=== PATIENT | male | born 1965 | race Caucasian/White ===

== ENCOUNTER → 2017-09-07 10:54 | Outpatient (POV) | payer OTHER, SELFPAY | PROVIDERS: Family Provider Family Medicine; Visit Provider Nurse Practitioner Acute Care | DX: Z00.00 Encounter for general adult medical examination without abnormal findings (principal) ==

== ENCOUNTER → 2017-09-14 09:57 | Outpatient (CLI) | payer OTHER, SELFPAY ==
--- NOTE | 2017-09-14 10:07 | XR_ITS ---
XR foot RT min 3V Ordering Physician: Di Stock DPM Patient Age: 52 years: Male HISTORY: ITS.REASON: ABSCESS OF FOOT EXCLUDING TOES Swelling & fluctuance plantar medial aspect of hindfoot TECHNIQUE: 3 views right foot radiograph COMPARISON :No previous] studies FINDINGS Osseous structures appear intact no fracture evident. No erosive changes. Joint spaces are well-maintained bones well mineralized. The small vessel calcifications throughout foot suggesting diabetes.. No radiopaque foreign body is evident there may be some mild soft tissue swelling at the heel pad evident on the lateral view and about the hindfoot. IMPRESSION: ---- Osseous structures intact. No fracture. Satisfactory relationships. No radiopaque foreign body evident. Suggest suggestion of vague soft tissue swelling/edema heel pad region Small vessel calcifications throughout ankle and foot likely reflecting diabetes
--- NOTE | 2017-09-14 12:25 | MR_ITS ---
MR foot RT wo/w con MRI right foot pre and postcontrast Ordering Physician: Di Stock DPM Patient Age: 52 years: Male HISTORY: Fluctuance swelling redness at the plantar medial aspect of the hindfoot. TECHNIQUE: Multiplanar multisequence imaging precontrast. Following 20 mL ProHance coronal T1 fat suppression as well as axial T1 fat suppression imaging performed. COMPARISON :Right foot radiograph 09/14/2017 FINDINGS No discrete focal fluid collection to suggest abscess. We see no prominent areas of enhancement to suggest cellulitis. There is diffuse edematous changes which appears to thicken the superficial soft tissues in subcutaneous soft at the level of the ankle. This is most evident overlying the medial malleolus but there is some mild superficial subcutaneous edema overlying the lateral malleolus and posteriorly is well.. The calf or legs swollen as well if so you may want to consider duplex Doppler study The superficial edema continues over the medial ankle and but progressively diminishes over the neck 2-3 cm inferior to the medial malleolus. Only minor subcutaneous edema medially overlying heel pad The heel pad fat itself shows only minor diffuse subtle edema, perhaps slightly more evident along the medial aspect calcaneus. However again no focal fluid collection nor abscess is seen here. Postcontrast images show no prominent enhancement nor focal enhancing lesion. Only question of some very enhancement throughout heel pad fat tissues which which could reflect minor inflammation at most question possible minor cellulitis but overall unimpressive.. Findings were discussed with Dr. Stock . & given history that the slight fluctuant area of abnormality is towards the medial aspect of the heel pad. Again shows only slight edema in the heel pad fat itself... Edema Most pronounced at superficial soft tissues overlying the medial malleolus and continuing towards the medial plantar aspect of foot there is less evident edema within the heel pad itself of medial aspect. Is there evidence of edema at the ankle and calf clinically? Close inspection On coronal image 29 and 28 there is a subtle linear area leading to the medial margin of the calcaneus.. It has almost a tract-like appearance possibly from previous reported needle puncture? Unlikely in that it this is of significance.. More likely reflect some of the contour ligamentous structures leading towards the medial component of the plantar aponeurosis.. If this were a foreign body I would expect to see much more evident fluid and/or enhancement adjacent to it and we do not. . The bones appear intact. No joint effusion. The plain films from previous 09/14/2017 study show no radiopaque foreign body either. However there are diffuse faint vascular calcifications throughout the foot likely reflecting underlying diabetes. The appearance the remainder of the lower leg would be important to correlate. I would question if this appearance could be related diabetic dermopathy process, since since by MR it appears to to primarily involve the superficial and subcutaneous tissue. IMPRESSION: 1. No Focal Abscess Evident... Particular attention directed towards medial aspect of the heel pad as per Dr. Stock hx. Only perhaps very subtle diffuse edema seen throughout heel pad, very slightly more evident medially. Postcontrast images show only subtle/upper normal diffuse enhancement throughout heel pad fat slightly more evident medial heel pad..-. Would expect to see greater enhancement if significant inflammation, from significant cellulitis or developing abscess,- and we do not. 2. The main abnormal finding is diffuse prominent superficial soft tissue edema, & yielding thickening soft tissues (measur
== END ==
PROVIDERS: PCP Family Medicine; Visit Provider Podiatrist
DX: L02.619 Cutaneous abscess of unspecified foot (principal)
CPT/HCPCS: 73630; 73720; 87070; 87077; 87186; 87205; A9576

== ENCOUNTER → 2017-09-14 10:24 | Outpatient (CLI) | payer OTHER, SELFPAY | PROVIDERS: Visit Provider Podiatrist | DX: L02.91 Cutaneous abscess, unspecified (principal) ==

== ENCOUNTER → 2017-09-14 10:27 | Outpatient (CLI) | payer OTHER, SELFPAY ==
[2017-09-14 11:35] LABS: Basophils # 0.1 K/mm3 (0-0.2); Basophils % 0.5 % (0.1-2.0); Eosinophils # 0.4 K/mm3 (0.0-0.4); Eosinophils % 4.2 % (0.1-12.0); Hematocrit 42.9 % (42.0-52.0); Hemoglobin 14.3 g/dL (14.1-18.0); Lymphocytes # 1.9 K/mm3 (0.7-4.5); Lymphocytes % 20.4 K/mm3 (10-50); Mean Corpuscular HGB Conc 33.4 g/dL (31.8-35.4); Mean Corpuscular Hemoglobin 30.8 pg (27.0-31.2); Mean Corpuscular Volume 92.4 fl (80-94); Mean Platelet Volume 8.7 fl (7.4-10.4); Monocytes # 0.5 K/mm3 (0.1-1.0); Monocytes % 5.5 % (1.7-9.3); Neutrophils # 6.5 K/mm3 (1.8-7.8); Neutrophils % 69.3 % (37.0-80.0); Platelet Count 221 K/mm3 (142-424); Red Blood Count 4.64 M/mm3 (4.60-6.20); Red Cell Distribution Width 12.9 % (11.5-17.5); White Blood Count 9.4 K/mm3 (4.8-10.8)
[2017-09-14 11:58] LABS: Hemoglobin A1C 8.4 % (0.0-7.0)
[2017-09-14 12:56] LABS: Alanine Aminotransferase 27 U/L (12-78); Albumin Level 3.9 gm/dL (3.4-5.0); Albumin/Globulin Ratio 1.1 (1.1-1.8); Alkaline Phosphatase 68 U/L (46-116); Anion Gap 13.2 mEq/L (5-15); Aspartate Amino Transferase 22 U/L (15-37); Bilirubin,Total 0.8 mg/dL (0.2-1.0); Blood Urea Nitrogen 17 mg/dL (7-18); Calcium 9.7 mg/dL (8.5-10.1); Carbon Dioxide 30 mmol/L (21.0-32.0); Chloride 103 mmol/L (98-107); Creatinine,Serum 0.85 mg/dL (0.70-1.30); Estimated Glomerular Filt Rate 95 ml/min (>60); GFR (African American) 115 ML/MIN (>60); Globulin 3.6 gm/dl (1.3-3.2); Glucose 139 mg/dL (74-106); Potassium 4.2 mmoL/L (3.5-5.1); Sodium 142 mmol/L (136-145); Total Protein,Serum 7.5 gm/dL (6.4-8.2)
[2017-09-14 12:57] LABS: Erythrocyte Sedimentation Rate 56 mm/hr (0-15)
== END ==
PROVIDERS: PCP Family Medicine; Visit Provider Podiatrist
DX: M79.671 Pain in right foot (principal)
CPT/HCPCS: 36415; 80053; 83036; 85025; 85651; 86140

== ENCOUNTER → 2017-10-16 09:45 | Outpatient (POV) | payer OTHER, SELFPAY | PROVIDERS: Visit Provider Podiatrist | DX: Z00.00 Encounter for general adult medical examination without abnormal findings (principal) ==

== ENCOUNTER → 2017-10-19 11:16 | Outpatient (POV) | payer OTHER, SELFPAY | PROVIDERS: Visit Provider Nurse Practitioner Acute Care | DX: Z00.00 Encounter for general adult medical examination without abnormal findings (principal) ==

== ENCOUNTER 2017-10-26 07:03 | Day surgery (SDC) | payer OTHER, SELFPAY ==
[2017-10-20 12:44] VITALS: BMI 33.2
--- NOTE | 2017-10-20 13:04 | SUR.PREOP ---
called for cardiac clearance left message for dr marcelina martinez nurse-srini =[phone],when if able to stop brillinta
[2017-10-26] VITALS (7 sets, daily range): BP systolic 92–148; BP diastolic 56–90; PULSE 60–76; RESP 16–18; TEMP 36.1–36.4; O2SAT 93–98
[2017-10-26 07:34] LABS: POC Glucose,Bedside 184 mg/dL (70-110)
--- NOTE | 2017-10-26 07:38 | P.PN_ITS ---
[facility] Anesthesia Checklist - Patient Identification Patient Identification: Arm Band - Structural Data Admitted From: Home Planned Operative Procedure/s: colonoscopy Consent for Planned Operative Procedure(s) Verified: Yes Verified Documents: Surgical Consent, History and Physical - NPO Status Verified Time NPO: 00:00 - Additional verifications Anesthesia Reactions: No - Airway Assessment C-Spine Mobility Assessed: Yes (mp2) TMJ Mobility Assessed: Yes Dentition: Good Dentition - Neurological Assessment Level of Consciousness: Awake, Alert - Anesthesia Plan Anesthesia Risk discussed: Yes Anesthesia Plan: Verified ASA Class: III Anesthesia Type: MAC [facility] Anesthesia HX I have reviewed the patient's past medical history: Yes Medical History: Reports:: Coronary Artery Disease, Diabetes Mellitus Type 2 ( niddm), Gall Bladder Disease, Hyperlipidemia, Hypertension, Lung Disease (sleep apnea, does not use cpap), Peripheral Vascular Disease Denies:: Diabetes Mellitus Type 1, Internal Pacemaker, Seizures Laterality Cases: Right: Arthroscopy Knee, Arthroscopy Shoulder Other Surgeries: Yes: Appendectomy, Cardiac Catheterization, Coronary Stent, Hernia Repair. No: Pacemaker Amputation: No Fractures: Yes *Family Hx:: Kidney Disease
--- NOTE | 2017-10-26 08:36 | P.PCN_ITS ---
[facility] Procedure Note Procedure Note:: Colonoscopy Procedure Report: Colonoscopy with cold snare polypectomy Endoscopist: Buddy Fierro II, MD Referring physician: Manoj Thompson MD Date of Procedure: October 26, 2017 Equipment: Olympus 180 variable stiffness pediatric colonoscope Sedation: MAC sedation Indication: Mr. Colon is a 52-year-old gentleman who is here for initial screening colonoscopy. He has had a history of dyspepsia and chronic constipation. He still has some obstipation/incomplete evacuation with the fiber bowel regimen (MiraLAX plus Citrucel). He reports no abdominal pain which is certainly improved since his dyspeptic symptoms have improved. He reports no rectal bleeding or weight loss. He is adopted and does not know his family history. Procedure: Prior to the procedure, a history and physical exam was performed, and patient' s medications and allergies were reviewed. The risks, benefits and alternatives of the sedation and procedure were discussed with the patient. All questions were answered and informed consent was obtained. The patient was brought to the procedure room. Patient identification and proposed procedure were verified by the physician and the nurse. The patient was placed in a left lateral decubitus position and the scope was passed under direct vision. Throughout the procedure, the patient's blood pressure, pulse, and oxygen saturations were monitored continuously. The colonoscopy was accomplished without difficulty. The patient tolerated the procedure well. Findings: On digital rectal examination there was normal rectal tone. There were no external hemorrhoids. The colonoscope was introduced through the anal canal to the rectum and advanced to the cecum. The ileocecal valve and appendiceal orifice were identified. The scope was advanced a short distance into the ileum which appeared grossly normal. The scope was then withdrawn into the colon. There were 5 colon polyps identified in the ascending ?2, transverse ?2 and descending ?1. These ranged in size from 4-9 mm and were all removed via cold snare polypectomy. There were mildly scattered diverticuli throughout the descending and sigmoid colon (LEFT colon). The rectum itself was normal. Upon retroflexion within the rectum there were grade 1-2 internal hemorrhoids. Impression: 1. Colonic polyps ?5 2. Mild left-sided diverticulosis 3. Grade 1-2 internal hemorrhoids Plan: I will follow up the polyp pathology and recommend repeat colonoscopy again in 3 years based upon the polyp histology. I would encourage continuation of a fiber bowel regimen (MiraLAX plus Konsyl) on a long-term daily maintenance basis.
== END 2017-10-26 09:28 | disposition home or self-care (01) ==
LOC: OUTP 07:04
PROVIDERS: Family Provider Family Medicine; Visit Provider Internal Medicine Gastroenterology
PROC: 0DJD8ZZ Inspection of Lower Intestinal Tract, Via Natural or Artificial Opening Endoscopic (ICD-10-PCS; CPT 45378; principal; 2017-10-26 08:00)
DX: Z12.11 Encounter for screening for malignant neoplasm of colon (principal); K63.5 Polyp of colon; K57.30 Diverticulosis of large intestine without perforation or abscess without bleeding; K64.0 First degree hemorrhoids; K64.1 Second degree hemorrhoids
CPT/HCPCS: 45380; 82962

== ENCOUNTER → 2017-12-11 08:02 | Outpatient (CLI) | payer OTHER, SELFPAY ==
--- NOTE | 2017-12-11 08:09 | US_ITS ---
US abdomen limited COMPARISON: CT scan abdomen pelvis 07/17/2017 HISTORY: Evaluation for possible abdominal ventral hernia TECHNIQUE: March ultrasound over the area of interest FINDINGS: There is an area of abdominal wall thickening in the epigastrium near just above the umbilicus. Reviewed with previous CT scan of the abdomen and pelvis from June 2017 shows mild thinning suggesting early diastases recti. There is no definite loop of bowel extending to the area of abdominal wall thickening area IMPRESSION: Question possible very early diastases recti involving the area of interest versus a true ventral hernia and I somewhat favor the former.
== END ==
PROVIDERS: Family Provider Family Medicine; PCP Physician Assistant; Visit Provider Nurse Practitioner Family
DX: K43.9 Ventral hernia without obstruction or gangrene (principal)
CPT/HCPCS: 76705

== ENCOUNTER → 2017-12-21 09:11 | Outpatient (CLI) | payer OTHER, SELFPAY ==
[2017-12-21 09:54] LABS: Basophils % 0.4 % (0.1-2.0); Eosinophils # 0.4 K/mm3 (0.0-0.4); Eosinophils % 4.6 % (0.1-12.0); Hematocrit 46.1 % (42.0-52.0); Hemoglobin 15.4 g/dL (14.1-18.0); Lymphocytes # 1.7 K/mm3 (0.7-4.5); Lymphocytes % 20.5 K/mm3 (10-50); Mean Corpuscular HGB Conc 33.3 g/dL (31.8-35.4); Mean Corpuscular Hemoglobin 31.7 pg (27.0-31.2); Mean Corpuscular Volume 95.1 fl (80-94); Mean Platelet Volume 8.3 fl (7.4-10.4); Monocytes # 0.7 K/mm3 (0.1-1.0); Neutrophils # 5.5 K/mm3 (1.8-7.8); Neutrophils % 66.5 % (37.0-80.0); Platelet Count 216 K/mm3 (142-424); Red Blood Count 4.85 M/mm3 (4.60-6.20); Red Cell Distribution Width 13.3 % (11.5-17.5); White Blood Count 8.2 K/mm3 (4.8-10.8)
[2017-12-21 13:33] LABS: Alanine Aminotransferase 30 U/L (12-78); Albumin Level 4.3 gm/dL (3.4-5.0); Albumin/Globulin Ratio 1.2 (1.1-1.8); Alkaline Phosphatase 70 U/L (46-116); Anion Gap 8.8 mEq/L (5-15); Aspartate Amino Transferase 27 U/L (15-37); Bilirubin,Total 0.9 mg/dL (0.2-1.0); Blood Urea Nitrogen 23 mg/dL (7-18); Calcium 9.8 mg/dL (8.5-10.1); Carbon Dioxide 30 mmol/L (21.0-32.0); Chloride 103 mmol/L (98-107); Creatinine,Serum 1.01 mg/dL (0.70-1.30); Estimated Glomerular Filt Rate 78 ml/min (>60); GFR (African American) 95 ML/MIN (>60); Globulin 3.5 gm/dl (1.3-3.2); Glucose 178 mg/dL (74-106); Potassium 4.8 mmoL/L (3.5-5.1); Sodium 137 mmol/L (136-145); Total Protein,Serum 7.8 gm/dL (6.4-8.2)
== END ==
PROVIDERS: Visit Provider Surgery
DX: Z01.818 Encounter for other preprocedural examination (principal); K82.8 Other specified diseases of gallbladder
CPT/HCPCS: 36415; 80053; 85025

== ENCOUNTER 2018-02-19 13:14 | Inpatient (IN) ==
[2018-02-19 18:15] LABS: Basophils % 0.4 % (0.1-2.0); Eosinophils # 0.3 K/mm3 (0.0-0.4); Eosinophils % 2.8 % (0.1-12.0); Hematocrit 44.1 % (42.0-52.0); Hemoglobin 14.7 g/dL (14.1-18.0); Lymphocytes # 2.3 K/mm3 (0.7-4.5); Mean Corpuscular HGB Conc 33.4 g/dL (31.8-35.4); Mean Corpuscular Hemoglobin 30.5 pg (27.0-31.2); Mean Corpuscular Volume 91.2 fl (80-94); Mean Platelet Volume 8.2 fl (7.4-10.4); Monocytes # 0.6 K/mm3 (0.1-1.0); Monocytes % 6.7 % (1.7-9.3); Neutrophils # 6.3 K/mm3 (1.8-7.8); Neutrophils % 66.2 % (37.0-80.0); Platelet Count 242 K/mm3 (142-424); Red Blood Count 4.83 M/mm3 (4.60-6.20); Red Cell Distribution Width 13.4 % (11.5-17.5); White Blood Count 9.6 K/mm3 (4.8-10.8)
[2018-02-19 18:18] LABS: Anion Gap 14.9 mEq/L (5-15); Calcium 9.2 mg/dL (8.5-10.1); Potassium 3.9 mmoL/L (3.5-5.1)
[2018-02-20 06:59] LABS: Basophils # 0.1 K/mm3 (0-0.2); Basophils % 0.7 % (0.1-2.0); Eosinophils # 0.3 K/mm3 (0.0-0.4); Eosinophils % 3.6 % (0.1-12.0); Hematocrit 40.2 % (42.0-52.0); Hemoglobin 13.3 g/dL (14.1-18.0); Lymphocytes # 2.5 K/mm3 (0.7-4.5); Lymphocytes % 30.6 K/mm3 (10-50); Mean Corpuscular Hemoglobin 30.5 pg (27.0-31.2); Mean Corpuscular Volume 92.5 fl (80-94); Mean Platelet Volume 8.3 fl (7.4-10.4); Monocytes # 0.7 K/mm3 (0.1-1.0); Monocytes % 7.9 % (1.7-9.3); Neutrophils # 4.7 K/mm3 (1.8-7.8); Neutrophils % 57.3 % (37.0-80.0); Platelet Count 200 K/mm3 (142-424); Red Blood Count 4.35 M/mm3 (4.60-6.20); Red Cell Distribution Width 13.4 % (11.5-17.5); White Blood Count 8.2 K/mm3 (4.8-10.8)
--- NOTE | 2018-02-20 07:12 | Progress Note ---
Internal Medicine - PN: Subj *Date: 02/20/18 *Time: 07:09 Interval history: Patient reports no change in level of pain in his right leg. He is unsure if there is been any improvement in erythema. He arrived at the hospital around 5 PM yesterday evening and currently (7:09 AM) is receiving his second dose of vancomycin. He has not had any fevers overnight Exam Vital signs and Labs for Last 24 Hours: Temp Pulse Resp BP Pulse Ox 97.9 F 62 20 154/89 96 02/20/18 03:52 02/20/18 03:52 02/20/18 03:52 02/20/18 03:52 02/20/18 03:52 Laboratory Results - last 24 hr 02/19/18 18:00: WBC 9.6, RBC 4.83, Hgb 14.7, Hct 44.1, MCV 91.2, MCH 30.5, MCHC 33.4, RDW 13.4, Plt Count 242, MPV 8.2, Neut % (Auto) 66.2, Lymph % (Auto) 24.0 , [place] % (Auto) 6.7, Eos % (Auto) 2.8, Baso % (Auto) 0.4, Neut # (Auto) 6.3, Lymph # (Auto) 2.3, [place] # (Auto) 0.6, Eos # (Auto) 0.3, Baso # (Auto) 0.0 02/19/18 18:00: Sodium 140, Potassium 3.9, Chloride 105, Carbon Dioxide 24, Anion Gap 14.9, BUN 20 H, Creatinine 1.06, Estimated Creat Clear 116, Estimated GFR 74, Est GFR ( Amer) 89, Glucose 164 H, Calcium 9.2 02/19/18 20:16: POC Glucose 129 H 02/20/18 06:05: WBC 8.2, RBC 4.35 L, Hgb 13.3 L, Hct 40.2 L, MCV 92.5, MCH 30.5 , MCHC 33.0, RDW 13.4, Plt Count 200, MPV 8.3, Neut % (Auto) 57.3, Lymph % (Auto ) 30.6, [place] % (Auto) 7.9, Eos % (Auto) 3.6, Baso % (Auto) 0.7, Neut # (Auto) 4.7, Lymph # (Auto) 2.5, [place] # (Auto) 0.7, Eos # (Auto) 0.3, Baso # (Auto) 0.1 02/20/18 06:32: POC Glucose 161 H I & O for Last 24 hours: Intake & Output 02/17/18 02/18/18 02/19/18 02/20/18 11:59 11:59 11:59 11:59 Weight 216 lb 1 oz Narrative: He appears well. On the right leg there has not been any improvement in the area of erythema. Erythema is still surrounded by a larger area of tenderness. The wound is not actively draining. I believe there is some mild fluctuance in the central aspect of the wound. Assessment and Plan (1) Cellulitis of right leg without foot Current visit: Yes Status: Acute Category: Medical Code(s): L03.115 - Cellulitis of right lower limb (2) Diabetes mellitus Current visit: No Status: Chronic Qualifiers: Diabetes mellitus type: type 2 Diabetes mellitus terminal system operator insulin use: without skilled nursing use Diabetes mellitus complication status: with neurologic complications Category: Medical Code(s): E11.9 - Type 2 diabetes mellitus without complications - Assessment and plan all Dx Assessment and Plan for all problems:: 1. 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 Surgical consultation as I believe the small and may need debridement due to underlying abscess
--- NOTE | 2018-02-20 08:09 | Consult Report ---
*Admission Date: 02/19/18 *Chief complaint: LEG PAIN *History of present illness: Patient is a 52-year-old white male who states that over a week ago he had been putting up a metal building. Shortly thereafter he had a small red area on the right lower lateral leg. He initially thought this may be a bug bite. However the area progressed with increasing redness and tenderness. He had been seen in his primary care provider's office earlier and was placed on oral antibiotics. He followed up in the office yesterday with increasing redness and tenderness and was admitted for inpatient management and surgical consultation. Review of Systems - Constitutional Denies chills - Eyes Denies change in vision - ENT Denies abnormal hearing - *Cardiovascular Denies chest pain - *Gastrointestinal Denies abdominal pain - *Genitourinary Denies difficulty urinating - *Musculoskeletal Denies joint pain - *Neurologic Denies tingling [facility] History Medical History: Reports:: Coronary Artery Disease, Diabetes Mellitus Type 2, Gall Bladder Disease, Hyperlipidemia, Hypertension, Lung Disease, Peripheral Vascular Disease Denies:: Cancer (biopsy of lower lip precancer), Diabetes Mellitus Type 1, Internal Pacemaker, MRSA, Seizures Laterality Cases: Right: Arthroscopy Knee, Arthroscopy Shoulder Other Surgeries: Yes: Appendectomy, Cardiac Catheterization, Coronary Stent, Hernia Repair. No: Pacemaker Amputation: No Fractures: Yes - *Social History Educational Level: Completed High School Smoking Status: Current every day smoker Tobacco Type: cigarettes Alcohol Intake: current Alcohol Intake Frequency:: a few times a week Substance Use Type: denies use Occupational Status: unemployed Housing: house Household Members: spouse - Psychiatric History Expresses thoughts of harming self/others: None Suicide Plan Description: No Plan *Family Hx:: Kidney Disease Meds Home Medications Medication Instructions Recorded Confirmed Type aspirin 81 mg tablet,delayed 81 mg PO DAILY 09/09/17 02/19/18 History release atorvastatin 10 mg tablet 10 mg PO DAILY 09/09/17 02/19/18 History dicyclomine 10 mg capsule 20 mg PO QID 09/09/17 02/19/18 History empagliflozin 25 mg tablet 25 mg PO DAILY 09/09/17 02/19/18 History gabapentin 300 mg capsule 300 mg PO TID cap 09/09/17 02/19/18 History metformin 1,000 mg tablet 1,000 mg PO BID 09/09/17 02/19/18 History metoclopramide 10 mg tablet 10 mg PO DAILY 09/09/17 02/19/18 History pantoprazole 40 mg tablet,delayed 40 mg PO DAILY 09/09/17 02/19/18 History release ticagrelor 90 mg tablet 90 mg PO BID 09/09/17 02/19/18 History Linaclotide [Linzess] 145 mcg PO DAILY 02/19/18 02/19/18 History Sitagliptin Phosphate [Januvia 50 mg PO DAILY 02/19/18 02/19/18 History 50mg Tablet] Allergies Allergy/AdvReac Type Severity Reaction Status Date / Time No Known Allergies Allergy Verified 12/21/17 08:52 Exam Vital signs and Labs for Last 24 Hours: Temp Pulse Resp BP Pulse Ox 97.8 F 55 L 16 124/73 94 L 02/20/18 07:21 02/20/18 07:21 02/20/18 07:21 02/20/18 07:21 02/20/18 07:21 Laboratory Results - last 24 hr 02/19/18 18:00: WBC 9.6, RBC 4.83, Hgb 14.7, Hct 44.1, MCV 91.2, MCH 30.5, MCHC 33.4, RDW 13.4, Plt Count 242, MPV 8.2, Neut % (Auto) 66.2, Lymph % (Auto) 24.0 , [place] % (Auto) 6.7, Eos % (Auto) 2.8, Baso % (Auto) 0.4, Neut # (Auto) 6.3, Lymph # (Auto) 2.3, [place] # (Auto) 0.6, Eos # (Auto) 0.3, Baso # (Auto) 0.0 02/19/18 18:00: Sodium 140, Potassium 3.9, Chloride 105, Carbon Dioxide 24, Anion Gap 14.9, BUN 20 H, Creatinine 1.06, Estimated Creat Clear 116, Estimated GFR 74, Est GFR ( Amer) 89, Glucose 164 H, Calcium 9.2 02/19/18 20:16: POC Glucose 129 H 02/20/18 06:05: WBC 8.2, RBC 4.35 L, Hgb 13.3 L, Hct 40.2 L, MCV 92.5, MCH 30.5 , MCHC 33.0, RDW 13.4, Plt Count 200, MPV 8.3, Neut % (Auto) 57.3, Lymph % (Auto ) 30.6, [place] % (Auto) 7.9, Eos % (Auto) 3.6, Baso % (Auto) 0.7, Neut # (Auto) 4.7, Lymph # (Auto) 2.5, [place] # (Auto) 0.7, Eos # (Auto) 0.3, Baso # (Auto) 0.1 02/20/18 06:32: POC Glucose 161 H I & O for Last 24 hours: Intake & Output 02/17/18 02/18/18 02/19/18 02/20/18 11:59 11:59 11:59 11:59 Weight 216 lb 1 oz - Constitutional no acute distress - *Routine Respiratory Exam Present: CTA bilaterally - *Routine Cardiovascular Exam Present: RRR - *Routine Abdominal Exam Present: soft - *Routine Skin Exam Comments: On the right lower lateral extremity there is an area of erythema with central necrosis. This is rather tender. There is seems to be some bruising as well. Results - Labs 02/20/18 06:05 02/19/18 18:00 Laboratory Results - last 24 hr 02/19/18 18:00: WBC 9.6, RBC 4.83, Hgb 14.7, Hct 44.1, MCV 91.2, MCH 30.5, MCHC 33.4, RDW 13.4, Plt Count 242, MPV 8.2, Neut % (Auto) 66.2, Lymph % (Auto) 24.0 , [place] % (Auto) 6.7, Eos % (Auto) 2.8, Baso % (Auto) 0.4, Neut # (Auto) 6.3, Lymph # (Auto) 2.3, [place] # (Auto) 0.6, Eos # (Auto) 0.3, Baso # (Auto) 0.0 02/19/18 18:00: Sodium 140, Potassium 3.9, Chloride 105, Carbon Dioxide 24, Anion Gap 14.9, BUN 20 H, Creatinine 1.06, Estimated Creat Clear 116, Estimated GFR 74, Est GFR ( Amer) 89, Glucose 164 H, Calcium 9.2 02/19/18 20:16: POC Glucose 129 H 02/20/18 06:05: WBC 8.2, RBC 4.35 L, Hgb 13.3 L, Hct 40.2 L, MCV 92.5, MCH 30.5 , MCHC 33.0, RDW 13.4, Plt Count 200, MPV 8.3, Neut % (Auto) 57.3, Lymph % (Auto ) 30.6, [place] % (Auto) 7.9, Eos % (Auto) 3.6, Baso % (Auto) 0.7, Neut # (Auto) 4.7, Lymph # (Auto) 2.5, [place] # (Auto) 0.7, Eos # (Auto) 0.3, Baso # (Auto) 0.1 02/20/18 06:32: POC Glucose 161 H Assessment and Plan (1) Cellulitis of right leg without foot Current visit: Yes Status: Acute Category: Medical Code(s): L03.115 - Cellulitis of right lower limb (2) Diabetes mellitus Current visit: No Status: Chronic Qualifiers: Diabetes mellitus type: type 2 Diabetes mellitus group home insulin use: without terminal supervisor use Diabetes mellitus complication status: with neurologic complications Category: Medical Code(s): E11.9 - Type 2 diabetes mellitus without complications - Assessment and plan all Dx Assessment and Plan for all problems:: This is a rather unusual appearing lesion with soft tissue infection. This may be possibly a spider bite with some tissue necrosis and secondary infection. Plan will be for incision and drainage of the central area with debridement of skin and subcutaneous tissues and tissue sent for pathology and cultures obtained.
--- NOTE | 2018-02-20 08:51 | Pharmacy Consult Notes ---
[facility] Pharmacy VTE Monitoring - Patient Demographics Admission date: 02/19/18 Report Date: 02/20/18 Time: 08:51 Allergies/Adverse Reactions: Patient Allergies No Known Allergies Allergy (Verified 12/21/17 08:52) Height: 1.75 m Weight: 98.004 kg Patient Problems: Current Active Problems Cellulitis of right leg without foot (Acute) - VTE Risk Labs: VTE Related Lab Results Hgb 13.3 g/dL (14.1-18.0) L 02/20/18 06:05 Hct 40.2 % (42.0-52.0) L 02/20/18 06:05 Plt Count 200 K/mm3 (142-424) 02/20/18 06:05 BUN 20 mg/dL (7-18) H 02/19/18 18:00 Creatinine 1.06 mg/dL (0.70-1.30) 02/19/18 18:00 Estimated Creat Clear 116 mL/min (0-300) 02/19/18 18:00 Was VTE Risk Assessment Performed: Yes VTE Score: 2 VTE Risk Level: Very Low Risk - Prophylaxis VTE Prophylaxis Ordered?: Yes Types of VTE Prophylaxis: Pharmacological Pharmacologic Type: Enoxaparin
--- NOTE | 2018-02-20 09:48 | Operative Note ---
Date of procedure: 02/20/18 Pre-op Diagnosis:: Soft tissue infection of right lower extremity Post-op Diagnosis:: Same Procedure performed:: Incision and drainage of right lower extremity abscess with debridement of skin and subcutaneous tissues Surgeon:: Brown Acuna MD UNDERWRITING SALES REPRESENTATIVE:: Elder England Anesthesia: LMA Estimated blood loss (mL): 10 Clinical Note:: Patient is a 52-year-old diabetic male who for a bit over a week has had a refractory area of erythema and tenderness on the right lateral lower extremity. It has increased in size and he was admitted after being seen in his primary care provider's office yesterday afternoon and follow-up for intravenous antibiotics and surgical consultation for debridement. Operative findings:: He had evidence of carotic tissue with abscess. This was somewhat hemorrhagic. Operative note:: Consent was obtained patient was taken to the operating room. He was given a dose of preoperative intravenous antibiotics. General anesthesia was induced via LMA. Area was prepped and draped in the standard surgical fashion. Limited incision was made around necrotic eschar. This was unroofed and there was some purulent material which was cultured. Additional necrotic tissue was excised using electrocautery. There was undermining in the subcutaneous plane anterior to the tibial fascia most notable medially for approximately 4 cm. There was some exudate overlying fascia centrally and this was debrided easily. Overall size of the wound measured 3 x 2.5 cm. Wound depth is less than 1 cm. As stated above, there was undermining circumferentially but most notable in the medial portion of the wound for approximately 3-4 cm. Local anesthetic was infiltrated. Wound was irrigated. Wound was packed with moistened gauze and clean dry sterile dressing was applied. Condition: stable Disposition: PACU Specimens:: Cultures and debrided tissue Complications:: None immediately apparent
--- NOTE | 2018-02-20 09:50 | Pharmacy Consult Notes ---
- Pharmacy Consult Date: 02/20/18 Time: 09:49 Referring provider: DR. COVARRUBIAS Reason for Consult:: VANCOMYCIN DOSING Allergies and ADEs:: Allergies Allergy/AdvReac Type Severity Reaction Status Date / Time No Known Allergies Allergy Verified 12/21/17 08:52 Home Medications:: Home Medications Medication Instructions Recorded Confirmed Type aspirin 81 mg tablet,delayed 81 mg PO DAILY 09/09/17 02/19/18 History release atorvastatin 10 mg tablet 10 mg PO DAILY 09/09/17 02/19/18 History dicyclomine 10 mg capsule 20 mg PO QID 09/09/17 02/19/18 History empagliflozin 25 mg tablet 25 mg PO DAILY 09/09/17 02/19/18 History gabapentin 300 mg capsule 300 mg PO TID cap 09/09/17 02/19/18 History metformin 1,000 mg tablet 1,000 mg PO BID 09/09/17 02/19/18 History metoclopramide 10 mg tablet 10 mg PO DAILY 09/09/17 02/19/18 History pantoprazole 40 mg tablet,delayed 40 mg PO DAILY 09/09/17 02/19/18 History release ticagrelor 90 mg tablet 90 mg PO BID 09/09/17 02/19/18 History Linaclotide [Linzess] 145 mcg PO DAILY 02/19/18 02/19/18 History Sitagliptin Phosphate [Januvia 50 mg PO DAILY 02/19/18 02/19/18 History 50mg Tablet] Height: 1.75 m Weight: 98.004 kg Laboratory Results:: Laboratory Results - last 24 hr 02/19/18 18:00: WBC 9.6, RBC 4.83, Hgb 14.7, Hct 44.1, MCV 91.2, MCH 30.5, MCHC 33.4, RDW 13.4, Plt Count 242, MPV 8.2, Neut % (Auto) 66.2, Lymph % (Auto) 24.0 , [place] % (Auto) 6.7, Eos % (Auto) 2.8, Baso % (Auto) 0.4, Neut # (Auto) 6.3, Lymph # (Auto) 2.3, [place] # (Auto) 0.6, Eos # (Auto) 0.3, Baso # (Auto) 0.0 02/19/18 18:00: Sodium 140, Potassium 3.9, Chloride 105, Carbon Dioxide 24, Anion Gap 14.9, BUN 20 H, Creatinine 1.06, Estimated Creat Clear 116, Estimated GFR 74, Est GFR ( Amer) 89, Glucose 164 H, Calcium 9.2 02/19/18 20:16: POC Glucose 129 H 02/20/18 06:05: WBC 8.2, RBC 4.35 L, Hgb 13.3 L, Hct 40.2 L, MCV 92.5, MCH 30.5 , MCHC 33.0, RDW 13.4, Plt Count 200, MPV 8.3, Neut % (Auto) 57.3, Lymph % (Auto ) 30.6, [place] % (Auto) 7.9, Eos % (Auto) 3.6, Baso % (Auto) 0.7, Neut # (Auto) 4.7, Lymph # (Auto) 2.5, [place] # (Auto) 0.7, Eos # (Auto) 0.3, Baso # (Auto) 0.1 02/20/18 06:32: POC Glucose 161 H Medical History: Reports:: Coronary Artery Disease, Diabetes Mellitus Type 2, Gall Bladder Disease, Hyperlipidemia, Hypertension, Lung Disease, Peripheral Vascular Disease Denies:: Cancer (biopsy of lower lip precancer), Diabetes Mellitus Type 1, Internal Pacemaker, MRSA, Seizures Assessment and Plan (1) Cellulitis of right leg without foot Current visit: Yes Status: Acute Category: Medical Code(s): L03.115 - Cellulitis of right lower limb (2) Diabetes mellitus Current visit: No Status: Chronic Qualifiers: Diabetes mellitus type: type 2 Diabetes mellitus residence manager insulin use: without residence manager use Diabetes mellitus complication status: with neurologic complications Category: Medical Code(s): E11.9 - Type 2 diabetes mellitus without complications - Assessment and plan all Dx Assessment and Plan for all problems:: BASED ON PATIENT FACTORS, RECOMMEND VANCOMYCIN 2 GM IV ONCE, FOLLOWED BY VANCOMYCIN 1500 MG IV Q12H. WILL OBTAIN VANCOMYCIN TROUGH LEVEL TOMORROW PRIOR TO 4TH DOSE. PHARMACY WILL FOLLOW DAILY AND ADJUST APPROPRIATE.
--- NOTE | 2018-02-20 09:56 | Progress Note ---
[facility] Anesthesia Checklist - Structural Data Admitted From: Home Planned Operative Procedure/s: i/d rle Consent for Planned Operative Procedure(s) Verified: Yes - Airway Assessment C-Spine Mobility Assessed: Yes TMJ Mobility Assessed: Yes Dentition: Poor Dentition - Neurological Assessment Level of Consciousness: Awake, Alert, Appropriate - Anesthesia Plan Anesthesia Risk discussed: Yes Anesthesia Plan: Verified ASA Class: III Anesthesia Type: General [facility] Anesthesia HX I have reviewed the patient's past medical history: Yes Medical History: Reports:: Coronary Artery Disease, Diabetes Mellitus Type 2, Gall Bladder Disease, Hyperlipidemia, Hypertension, Lung Disease, Peripheral Vascular Disease Denies:: Cancer (biopsy of lower lip precancer), Diabetes Mellitus Type 1, Internal Pacemaker, MRSA, Seizures Laterality Cases: Right: Arthroscopy Knee, Arthroscopy Shoulder Other Surgeries: Yes: Appendectomy, Cardiac Catheterization, Coronary Stent, Hernia Repair. No: Pacemaker Amputation: No Fractures: Yes *Family Hx:: Kidney Disease
--- NOTE | 2018-02-20 09:57 | Progress Note ---
[facility] Anesthesia Record Part I Intake, IV Amount: 500 Estimated blood loss (mL): 0 Urine output (mL): 0 Blood Pressure: 109/65 SaO2: 98 Pulse Rate: 65 Respiratory Rate: 12 Temperature: 98.3 F Patient is:: Drowsy, Stable Stable to PACU at:: 09:50
--- NOTE | 2018-02-20 09:58 | Progress Note ---
[facility] Anesthesia Record Part II Discharge Time: 10:20 Destination: floor PACU nurse assessment reviewed?: Yes Patient Condition:: Good Anesthesia Complications:: None
[2018-02-21 06:28] LABS: Basophils % 0.1 % (0.1-2.0); Eosinophils % 0.2 % (0.1-12.0); Hematocrit 44.3 % (42.0-52.0); Hemoglobin 14.6 g/dL (14.1-18.0); Lymphocytes # 1.3 K/mm3 (0.7-4.5); Lymphocytes % 11.8 K/mm3 (10-50); Mean Corpuscular Hemoglobin 30.3 pg (27.0-31.2); Mean Corpuscular Volume 91.8 fl (80-94); Mean Platelet Volume 8.6 fl (7.4-10.4); Monocytes # 0.4 K/mm3 (0.1-1.0); Monocytes % 3.9 % (1.7-9.3); Neutrophils # 9.3 K/mm3 (1.8-7.8); Platelet Count 235 K/mm3 (142-424); Red Blood Count 4.82 M/mm3 (4.60-6.20); Red Cell Distribution Width 13.2 % (11.5-17.5)
--- NOTE | 2018-02-21 06:45 | Progress Note ---
Internal Medicine - PN: Subj *Date: 02/21/18 *Time: 06:42 Interval history: Patient complains of pain in the right leg this morning. He underwent debridement of the wound on his right leg yesterday morning. He denies fevers overnight. He has been able to ambulate. Exam Vital signs and Labs for Last 24 Hours: Temp Pulse Resp BP Pulse Ox 97.9 F 64 18 120/65 92 L 02/21/18 04:00 02/21/18 04:00 02/21/18 04:00 02/21/18 04:00 02/21/18 04:00 Laboratory Results - last 24 hr 02/20/18 06:05: WBC 8.2, RBC 4.35 L, Hgb 13.3 L, Hct 40.2 L, MCV 92.5, MCH 30.5 , MCHC 33.0, RDW 13.4, Plt Count 200, MPV 8.3, Neut % (Auto) 57.3, Lymph % (Auto ) 30.6, [place] % (Auto) 7.9, Eos % (Auto) 3.6, Baso % (Auto) 0.7, Neut # (Auto) 4.7, Lymph # (Auto) 2.5, [place] # (Auto) 0.7, Eos # (Auto) 0.3, Baso # (Auto) 0.1 02/20/18 06:32: POC Glucose 161 H 02/20/18 11:07: POC Glucose 119 H 02/20/18 16:14: POC Glucose 278 H 02/20/18 21:04: POC Glucose 256 H 02/21/18 06:04: WBC 11.0 H D, RBC 4.82, Hgb 14.6, Hct 44.3, MCV 91.8, MCH 30.3, MCHC 33.0, RDW 13.2, Plt Count 235, MPV 8.6, Neut % (Auto) 84.0 H, Lymph % (Auto ) 11.8, [place] % (Auto) 3.9, Eos % (Auto) 0.2, Baso % (Auto) 0.1, Neut # (Auto) 9.3 H, Lymph # (Auto) 1.3, [place] # (Auto) 0.4, Eos # (Auto) 0.0, Baso # (Auto) 0.0 02/21/18 06:17: POC Glucose 174 H I & O for Last 24 hours: Intake & Output 02/18/18 02/19/18 02/20/18 02/21/18 11:59 11:59 11:59 11:59 Intake Total 500 / 500 1260 / 1260 Balance 500 / 500 1260 / 1260 Weight 216 lb 1 oz Microbiology Reports for the Last 24 Hours: Microbiology 02/20/18 Unknown Leg,Right Gram Stain - Final 02/20/18 Unknown Leg,Right Abscess Culture - Preliminary Gram Positive Cocci Culture showing rare gram-positive cocci in clusters Narrative: Patient appears well. On examination of the wound the wound is packed with gauze and this packing was left in place. Erythema surrounding the wound has changed from bright red to a dull red. Skin superior to the wound is no longer tender. Skin both medially, laterally, inferiorly benzene still utility operator to the touch. Swelling has decreased in the wound. Assessment and Plan (1) Cellulitis of right leg without foot Current visit: Yes Status: Acute Category: Medical Code(s): L03.115 - Cellulitis of right lower limb (2) Diabetes mellitus Current visit: No Status: Chronic Qualifiers: Diabetes mellitus type: type 2 Diabetes mellitus usp insulin use: without usp use Diabetes mellitus complication status: with neurologic complications Category: Medical Code(s): E11.9 - Type 2 diabetes mellitus without complications (3) History of MRSA infection Current visit: Yes Status: Acute Category: Medical Code(s): Z86.14 - Personal history of Methicillin resistant Staphylococcus aureus infection - Assessment and plan all Dx Assessment and Plan for all problems:: 1. Begin dressing changes twice daily 2. Continue IV antibiotics for additional 24 hours and reassess wound 3. Anticipate discharge tomorrow
--- NOTE | 2018-02-21 10:10 | Progress Note ---
Subjective Narrative: Patient describes less diffuse pain. He has some pain medially to the wound regionally over the tibial area. Exam Vital signs and Labs for Last 24 Hours: Temp Pulse Resp BP Pulse Ox 97.6 F 76 18 149/81 91 L 02/21/18 07:56 02/21/18 07:56 02/21/18 07:56 02/21/18 07:56 02/21/18 07:56 Laboratory Results - last 24 hr 02/20/18 11:07: POC Glucose 119 H 02/20/18 16:14: POC Glucose 278 H 02/20/18 21:04: POC Glucose 256 H 02/21/18 06:04: WBC 11.0 H D, RBC 4.82, Hgb 14.6, Hct 44.3, MCV 91.8, MCH 30.3, MCHC 33.0, RDW 13.2, Plt Count 235, MPV 8.6, Neut % (Auto) 84.0 H, Lymph % (Auto ) 11.8, [place] % (Auto) 3.9, Eos % (Auto) 0.2, Baso % (Auto) 0.1, Neut # (Auto) 9.3 H, Lymph # (Auto) 1.3, [place] # (Auto) 0.4, Eos # (Auto) 0.0, Baso # (Auto) 0.0 02/21/18 06:04: Vancomycin Trough 14.9 02/21/18 06:17: POC Glucose 174 H I & O for Last 24 hours: Intake & Output 02/18/18 02/19/18 02/20/18 02/21/18 11:59 11:59 11:59 11:59 Intake Total 500 / 500 1620 / 1620 Balance 500 / 500 1620 / 1620 Weight 216 lb 1 oz Microbiology Reports for the Last 24 Hours: Microbiology 02/20/18 Unknown Leg,Right Gram Stain - Final 02/20/18 Unknown Leg,Right Abscess Culture - Preliminary Gram Positive Cocci - *Routine Extremities Exam Comments: Wound is clean. Erythema regressing. Progress Note: A&P (1) Cellulitis of right leg without foot Status: Acute Assessment and plan: Did dressing at bedside. Pain possibly from undermining with packing. Continue IV antibiotics and dressing changes. Possible discharge tomorrow on oral antibiotics and outpatient wound care. Current Visit: Yes (2) Diabetes mellitus Status: Chronic Current Visit: No (3) History of MRSA infection Status: Acute Current Visit: Yes
--- NOTE | 2018-02-21 10:23 | Pharmacy Consult Notes ---
- Pharmacy Consult Date: 02/21/18 Time: 10:22 Referring provider: DR. COVARRUBIAS Reason for Consult:: VANCOMYCIN TROUGH LEVEL Allergies and ADEs:: Allergies Allergy/AdvReac Type Severity Reaction Status Date / Time No Known Allergies Allergy Verified 12/21/17 08:52 Home Medications:: Home Medications Medication Instructions Recorded Confirmed Type aspirin 81 mg tablet,delayed 81 mg PO DAILY 09/09/17 02/19/18 History release atorvastatin 10 mg tablet 10 mg PO DAILY 09/09/17 02/19/18 History dicyclomine 10 mg capsule 20 mg PO QID 09/09/17 02/19/18 History empagliflozin 25 mg tablet 25 mg PO DAILY 09/09/17 02/19/18 History gabapentin 300 mg capsule 300 mg PO TID cap 09/09/17 02/19/18 History metformin 1,000 mg tablet 1,000 mg PO BID 09/09/17 02/19/18 History metoclopramide 10 mg tablet 10 mg PO DAILY 09/09/17 02/19/18 History pantoprazole 40 mg tablet,delayed 40 mg PO DAILY 09/09/17 02/19/18 History release ticagrelor 90 mg tablet 90 mg PO BID 09/09/17 02/19/18 History Linaclotide [Linzess] 145 mcg PO DAILY 02/19/18 02/19/18 History Sitagliptin Phosphate [Januvia 50 mg PO DAILY 02/19/18 02/19/18 History 50mg Tablet] Height: 1.75 m Weight: 98.004 kg Laboratory Results:: Laboratory Results - last 24 hr 02/20/18 11:07: POC Glucose 119 H 02/20/18 16:14: POC Glucose 278 H 02/20/18 21:04: POC Glucose 256 H 02/21/18 06:04: WBC 11.0 H D, RBC 4.82, Hgb 14.6, Hct 44.3, MCV 91.8, MCH 30.3, MCHC 33.0, RDW 13.2, Plt Count 235, MPV 8.6, Neut % (Auto) 84.0 H, Lymph % (Auto ) 11.8, [place] % (Auto) 3.9, Eos % (Auto) 0.2, Baso % (Auto) 0.1, Neut # (Auto) 9.3 H, Lymph # (Auto) 1.3, [place] # (Auto) 0.4, Eos # (Auto) 0.0, Baso # (Auto) 0.0 02/21/18 06:04: Vancomycin Trough 14.9 02/21/18 06:17: POC Glucose 174 H Medical History: Reports:: Coronary Artery Disease, Diabetes Mellitus Type 2, Gall Bladder Disease, Hyperlipidemia, Hypertension, Lung Disease, Peripheral Vascular Disease Denies:: Cancer (biopsy of lower lip precancer), Diabetes Mellitus Type 1, Internal Pacemaker, MRSA, Seizures Assessment and Plan (1) Cellulitis of right leg without foot Current visit: Yes Status: Acute Category: Medical Code(s): L03.115 - Cellulitis of right lower limb (2) Diabetes mellitus Current visit: No Status: Chronic Qualifiers: Diabetes mellitus type: type 2 Diabetes mellitus intermediate school teacher insulin use: without intermediate school teacher use Diabetes mellitus complication status: with neurologic complications Category: Medical Code(s): E11.9 - Type 2 diabetes mellitus without complications (3) History of MRSA infection Current visit: Yes Status: Acute Category: Medical Code(s): Z86.14 - Personal history of Methicillin resistant Staphylococcus aureus infection - Assessment and plan all Dx Assessment and Plan for all problems:: BASED ON PATIENT FACTORS AND VANCOMYCIN TROUGH LEVEL, RECOMMEND CONTINUING VANCOMYCIN 1500 MG IV Q12H. PHARMACY WILL CONTINUE TO MONITOR DAILY AND ADJUST APPROPRIATE.
--- NOTE | 2018-02-22 07:14 | Discharge Summary ---
General - General Admission date:: 02/19/18 Discharge date: 02/22/18 HPI HPI: Patient is a 52-year-old white male who states that over a week ago he had been putting up a metal building. Shortly thereafter he had a small red area on the right lower lateral leg. He initially thought this may be a bug bite. However the area progressed with increasing redness and tenderness. He had been seen in his primary care provider's office earlier and was placed on oral antibiotics. He followed up in the office yesterday with increasing redness and tenderness and was admitted for inpatient management and surgical consultation. Hospital Course Hospital Course: Patient was admitted on the evening of February 19 and IV vancomycin was started. The following morning patient had surgical consultation and decision was made to take the patient to the OR for debridement of his right leg wound. Patient underwent successful debridement by Dr. Acuna. He was maintained on IV vancomycin. Cultures were performed intraoperatively. Patient had gradual improvement of cellulitis surrounding the wound after surgery. Wound was packed and he will require dressing changes twice daily. On the morning of February 22 cellulitis had improved significantly. Patient was discharged home on Bactrim to cover his methicillin sensitive staph aureus infection.. He has been advised to stay off work for at least 2 weeks. Patient will follow-up with Dr. Acuna as directed and follow-up with me in 2 weeks. Objective Vital signs: Temp Pulse Resp BP Pulse Ox 98.0 F 67 16 102/62 93 L 02/22/18 04:00 02/22/18 04:00 02/22/18 04:00 02/22/18 04:00 02/22/18 04:00 Results Labs on day of discharge: Labs from last 24 hours 02/21/18 02/21/18 02/21/18 20:02 16:25 11:37 POC Glucose 254 H 219 H 276 H Preliminary micro results at discharge 02/19/18 18:06 Blood Culture - Preliminary Blood NO GROWTH AFTER 48 HOURS DS: Diagnosis - Discharge Diagnosis (1) Cellulitis of right leg without foot Status: Acute (2) Diabetes mellitus Status: Chronic (3) History of MRSA infection Status: Acute (4) MSSA (methicillin susceptible Staphylococcus aureus) Status: Acute Discharge Plan - Patient Discharge Instructions ACTIVITY: Continue current activity DIET: continue same diet - Follow up Plan Follow up with: Brown Acuna MD [Staff Physician] - Manoj Thompson MD [Primary Care Provider] - 03/08/18 1:30 pm Disposition: Home, Self-Correction Medications: Home Medications Medication Instructions Recorded Confirmed Type aspirin 81 mg tablet,delayed 81 mg PO DAILY 09/09/17 02/19/18 History release atorvastatin 10 mg tablet 10 mg PO DAILY 09/09/17 02/19/18 History dicyclomine 10 mg capsule 20 mg PO QID 09/09/17 02/19/18 History empagliflozin 25 mg tablet 25 mg PO DAILY 09/09/17 02/19/18 History gabapentin 300 mg capsule 300 mg PO TID cap 09/09/17 02/19/18 History metformin 1,000 mg tablet 1,000 mg PO BID 09/09/17 02/19/18 History metoclopramide 10 mg tablet 10 mg PO DAILY 09/09/17 02/19/18 History pantoprazole 40 mg tablet,delayed 40 mg PO DAILY 09/09/17 02/19/18 History release ticagrelor 90 mg tablet 90 mg PO BID 09/09/17 02/19/18 History Linaclotide [Linzess] 145 mcg PO DAILY 02/19/18 02/19/18 History RX: Sitagliptin Phosphate [Januvia 50 mg PO DAILY 02/19/18 02/19/18 History 50mg Tablet] Prescriptions/Medication Reconciliation: New Sulfamethoxazole/Trimethoprim [Bactrim DS tablet] 1 each PO BID #14 tab Continue atorvastatin 10 mg tablet 10 mg PO DAILY dicyclomine 10 mg capsule 20 mg PO QID ticagrelor 90 mg tablet 90 mg PO BID gabapentin 300 mg capsule 300 mg PO TID cap empagliflozin 25 mg tablet 25 mg PO DAILY metformin 1,000 mg tablet 1,000 mg PO BID metoclopramide 10 mg tablet 10 mg PO DAILY pantoprazole 40 mg tablet,delayed release 40 mg PO DAILY aspirin 81 mg tablet,delayed release 81 mg PO DAILY RX: Sitagliptin Phosphate [Januvia 50mg Tablet] 50 mg PO DAILY Linaclotide [Linzess] 145 mcg PO DAILY
--- NOTE | 2018-02-22 08:40 | Progress Note ---
Subjective Patient reports: feels better Exam Vital signs and Labs for Last 24 Hours: Temp Pulse Resp BP Pulse Ox 97.6 F 61 18 158/82 97 02/22/18 08:00 02/22/18 08:00 02/22/18 08:00 02/22/18 08:00 02/22/18 08:00 Laboratory Results - last 24 hr 02/21/18 11:37: POC Glucose 276 H 02/21/18 16:25: POC Glucose 219 H 02/21/18 20:02: POC Glucose 254 H I & O for Last 24 hours: Intake & Output 02/19/18 02/20/18 02/21/18 02/22/18 11:59 11:59 11:59 11:59 Intake Total 500 / 500 1620 / 1620 900 / 900 Balance 500 / 500 1620 / 1620 900 / 900 Weight 216 lb 1 oz 216 lb 1 oz 216 lb 0.989 oz Microbiology Reports for the Last 24 Hours: Microbiology 02/20/18 Unknown Leg,Right - Final 02/20/18 Unknown Leg,Right - Final 02/20/18 Unknown Leg,Right - Final 02/20/18 Unknown Leg,Right Gram Stain - Final 02/20/18 Unknown Leg,Right Abscess Culture - Final Staphylococcus aureus 02/19/18 18:06 Blood Blood Culture - Preliminary NO GROWTH AFTER 48 HOURS - *Routine Extremities Exam Comments: Wound is clean. Erythema has virtually completely resolved. Progress Note: A&P (1) Cellulitis of right leg without foot Status: Acute Current Visit: Yes (2) Diabetes mellitus Status: Chronic Current Visit: No (3) History of MRSA infection Status: Acute Assessment and plan: Okay for discharge home at this time. Patient and are comfortable performing dressing changes at home. Plan for twice daily dressing changes, wet -to-dry, with saline. Anticipate off work for 2 weeks. I will see him in the office in 1 week for wound check. Current Visit: Yes (4) MSSA (methicillin susceptible Staphylococcus aureus) Status: Acute Current Visit: Yes
== END 2018-02-22 10:14 | disposition home or self-care (01) ==
LOC: 2ND 13:14
PROVIDERS: ADMIT Family Medicine; ATTEND Family Medicine

== ENCOUNTER 2018-04-21 10:00 | Outpatient (RCR) | payer OTHER, SELFPAY ==
--- NOTE | 2018-03-03 16:19 | [facility].PTOPWND ---
Rehab Outpt Wound Evaluation Rehab OP Wound Evaluation Start: 03/03/18 16:09 Freq: Status: Active Protocol: Document 03/03/18 16:09 PARAGCARRIE (Rec: 03/03/18 16:18 LISANDRA [id number]) Electronically Signed By Ludin Goddard PT 03/03/18 16:09 Subjective/History History History This is the initial OP PT wound clinic eval for Dionicio Colon. Pt is a 52 y/o male referred to PT for wound care. Pt reports ~ 1 month ago he noticed a scab on his R sorensen . Pt rpeorts after a few days the redness around the scab began to spread and hurt. Pt reports he went to family MD, wound cultured and pt admitted to hospital. Pt reports surgical debridement done in hospital and antibiotics. Pt reports staph. Subjective Subjective Pt reports TTP around wound Wound Eval Wound Right Anterior Lateral Sorensen Wound Type debrided spider bite Is This a Chronic Wound Yes Wound Length (cm) 3.5 Wound Width (cm) 3.0 Wound Depth (cm) 0.5 Wound Bed Appearance Dusky Red Yellow Percentage of Slough (%) 100 Wound Margins Description Well Defined Surrounding Tissue Appearance [place] Drainage Description Serous Drainage Amount Scant Drainage Odor No Odor Dressing Status Changed Wound Topical Solution/Irrigant Antibiotic Irrigant Primary Dressing Silver Dressing Comment tegederm AG mesh Wound Secondary Dressing Type Film Dressing Wound Debridement Amount of Tissue None Removed Dressing Change Patient Tolerance Tolerated Well Wound Problems/Impairments Impairments Problems/Impairmments Palpation Tenderness Impaired Gait Pattern Impaired Walking Impaired Stair Climbing Impaired Recreational Activities Impaired Work Activities Wound Care Needs Subjective C/O Pain Impaired Self Care/Self Management Prognosis Rehab Potential Good Clinical Impression Consistent with Diagnosis Yes
== END 2018-04-21 10:01 | disposition home or self-care (01) ==
LOC: PT 10:00
PROVIDERS: Family Provider Family Medicine; PCP Family Medicine; Visit Provider Surgery
DX: T63.304A Toxic effect of unspecified spider venom, undetermined, initial encounter (principal); M79.662 Pain in left lower leg
CPT/HCPCS: 97161; 97597

== ENCOUNTER → 2019-03-15 14:06 | Outpatient (CLI) | payer OTHER, SELFPAY ==
--- NOTE | 2019-03-15 14:14 | XR_ITS ---
XR foot LT min 3V HISTORY: ITS.REASON: LT FOOT PAIN ORDERING PHYSICIAN: Manoj Thompson MD PATIENT AGE: 54 years COMPARISON: None FINDINGS: Bone density, joint spaces and alignment are normal. There is a prominent 10 mm plantar calcaneal spur. There is a small spur at the superior talonavicular joint and at the superior first tarsal/metatarsal joint. There is no acute fracture. There are vascular calcifications. Impression: Degenerative changes as described. No acute process. No significant change in the plantar arch on the weightbearing lateral view.
== END ==
PROVIDERS: PCP Family Medicine; Visit Provider Family Medicine
DX: M79.672 Pain in left foot (principal)
CPT/HCPCS: 73630

== ENCOUNTER → 2019-06-21 12:28 | Outpatient (CLI) | payer SELFPAY ==
--- NOTE | 2019-06-21 12:35 | XR_ITS ---
PROCEDURE: XR FOOT WT BEARING LT 3V CLINICAL INDICATION: evaluate for osteomyelitis of the left great toe Pain and swelling with redness COMPARISON: [id number] XR foot RT min 3V from 09/14/2017 XR FOOT LT MIN 3V from 06/04/2019 FINDINGS: No fracture or dislocation. No lytic or blastic change. There is normal mineralization. Soft tissue swelling involves the great toe. There is some questionable discontinuity of the cortex along the distal and lateral aspect of the distal phalanx. Cannot exclude early osteomyelitis. There is some vascular calcification. No acute fracture or dislocation. There are mild degenerative changes of the midfoot. Prominent calcaneal spur is noted. Other findings:None. IMPRESSION: There is some mild haziness with questionable discontinuity of the distal and lateral cortex of the distal phalanx of the great toe which could be seen with early osteomyelitis. MRI without and with contrast may be of further value. Dictated by: Sarmad Isaacs MD 06/24/2019 04:33 Electronically signed by aSrmad Isaacs MD in [place] 06/24/2019 04:33
[2019-06-21 13:21] LABS: Basophils # 0.1 K/mm3 (0-0.2); Basophils % 0.7 % (0.1-2.0); Eosinophils # 0.3 K/mm3 (0.0-0.4); Eosinophils % 4.8 % (0.1-12.0); Hematocrit 42.2 % (42.0-52.0); Hemoglobin 13.7 g/dL (14.1-18.0); Lymphocytes # 2.2 K/mm3 (0.7-4.5); Lymphocytes % 31.2 % (10-50); Mean Corpuscular HGB Conc 32.5 g/dL (31.8-35.4); Mean Corpuscular Hemoglobin 32.1 pg (27.0-31.2); Mean Corpuscular Volume 98.7 fl (80-94); Mean Platelet Volume 8.4 fl (7.4-10.4); Monocytes # 0.6 K/mm3 (0.1-1.0); Monocytes % 8.1 % (1.7-9.3); Neutrophils # 3.9 K/mm3 (1.8-7.8); Neutrophils % 55.2 % (37.0-80.0); Platelet Count 275 K/mm3 (142-424); Red Blood Count 4.28 M/mm3 (4.60-6.20); Red Cell Distribution Width 13.4 % (11.5-17.5); White Blood Count 7.1 K/mm3 (4.8-10.8)
[2019-06-21 14:17] LABS: Alanine Aminotransferase 33 U/L (12-78); Albumin Level 3.3 gm/dL (3.4-5.0); Albumin/Globulin Ratio 0.9 (1.1-1.8); Alkaline Phosphatase 100 U/L (46-116); Anion Gap 12.3 mEq/L (5-15); Aspartate Amino Transferase 18 U/L (15-37); Bilirubin,Total 0.6 mg/dL (0.2-1.0); Blood Urea Nitrogen 20 mg/dL (7-18); C-Reactive Protein 0.8 mg/dL (0.0-0.9); Carbon Dioxide 31 mmol/L (21.0-32.0); Chloride 105 mmol/L (98-107); Creatinine,Serum 1.14 mg/dL (0.70-1.30); Estimated Glomerular Filt Rate 67 ml/min (>60); GFR (African American) 82 ML/MIN (>60); Globulin 3.8 gm/dl (1.3-3.2); Glucose 163 mg/dL (74-106); Potassium 5.3 mmoL/L (3.5-5.1); Sodium 143 mmol/L (136-145); Total Protein,Serum 7.1 gm/dL (6.4-8.2)
[2019-06-21 14:31] LABS: Erythrocyte Sedimentation Rate 79 mm/hr (0-20)
[2019-06-21 17:05] LABS: Hemoglobin A1C 9.5 % (0.0-7.0)
== END ==
PROVIDERS: PCP Family Medicine; Visit Provider Podiatrist
DX: E11.621 Type 2 diabetes mellitus with foot ulcer (principal); L03.032 Cellulitis of left toe; L97.529 Non-pressure chronic ulcer of other part of left foot with unspecified severity
CPT/HCPCS: 36415; 73630; 80053; 83036; 85025; 85651; 86140; 87070; 87077; 87186; 87205

== ENCOUNTER → 2019-06-21 17:54 | Outpatient (CLI) | payer OTHER, SELFPAY | PROVIDERS: Visit Provider Podiatrist | DX: E11.621 Type 2 diabetes mellitus with foot ulcer (principal); L03.032 Cellulitis of left toe | CPT/HCPCS: 87070; 87205 ==